=== PATIENT | female | born 1990 | race American Indian/Alaskan Native ===

== ENCOUNTER 2017-01-12 16:50 | Outpatient (CLI) | payer MEDICAID ==
[2017-01-12 18:13] VITALS: BP 112/68
[2017-01-12] MEDS ORDERED: VISTARIL PO ONE (19:49)
== END 2017-01-12 20:05 | disposition home or self-care (01) ==
LOC: TRG 16:50
PROVIDERS: ATTEND Obstetrics & Gynecology
DX: Z34.93 Encounter for supervision of normal pregnancy, unspecified, third trimester (principal); Z3A.37 37 weeks gestation of pregnancy
CPT/HCPCS: 59025; Q0177

== ENCOUNTER 2017-01-21 11:08 | Outpatient (CLI) | payer MEDICAID ==
[2017-01-21 11:44] VITALS: BP 113/60
== END 2017-01-21 14:10 | disposition home or self-care (01) ==
LOC: TRG 11:08
PROVIDERS: ATTEND Obstetrics & Gynecology
DX: O47.1 False labor at or after 37 completed weeks of gestation (principal); Z3A.38 38 weeks gestation of pregnancy
CPT/HCPCS: 59025

== ENCOUNTER 2018-05-18 18:54 | Emergency (ER) | payer SELFPAY ==
[2018-05-18 19:20] VITALS: BP 119/75
[2018-05-18 19:57] LABS: Bacteria,Urine 1+ /HPF (Negative); Bilirubin,Urine NEG (Negative); Blood,Urine SM (Negative); Color,Urine Yellow (Yellow); Mucus,Urine 2+ /HPF
[2018-05-18 20:00] LABS: HCG Qualitative,Urine Negative (Negative)
[2018-05-18] MEDS ORDERED: DIFLUCAN PO ONE (21:17)
[2018-05-18] MEDS ORDERED: MACROBID PO ONE (21:17)
--- NOTE | 2018-05-18 21:22 | Emergency Department Report ---
ED Female HPI - General Chief complaint: Urogenital-Female Stated complaint: IRRITATION PRIVATE Time Seen by Provider: 05/18/18 21:17 Source: patient Mode of arrival: Ambulatory Limitations: Language Barrier - History of Present Illness Initial comments: Visit was a show of November female who presents for dysuria frequency and urgency patient denies discharge no vaginal bleeding or back pain about final nausea vomiting no fevers or chills patient endorses not been sexually active last menstrual period one week ago however states treatment UTIs no renal stones no no flow problems no hematuria no back pain yeast infection with antibiotics MD Complaint: dysuria Onset/Timin Severity: moderate Severity scale (0 -10): 4 Quality: other (dysuria ) Consistency: intermittent Worsens with: urination Are you Now?: No Last Menstrual Period: 05/12/18 EDC: 02/16/19 Associated Symptoms: dysuria. denies: vaginal discharge, vaginal bleeding, abdominal pain, nausea/vomiting, fever/chills, headaches, loss of appetite, hematuria, rash, syncope, weakness - Related Data Sexually active: No Previous Rx's Medication Instructions Recorded Last Taken Type Nitrofurantoin Monohyd/M-Cryst 100 mg PO BID #14 capsule 05/18/18 Unknown Rx [Macrobid 100 mg Capsule] Allergies Allergy/AdvReac Type Severity Reaction Status Date / Time No Known Allergies Allergy Verified 01/12/17 17:30 ED Review of Systems ROS: Stated complaint: IRRITATION PRIVATE Other details as noted in HPI Constitutional: denies: chills, fever Eyes: denies: eye pain, eye discharge, vision change ENT: denies: ear pain, throat pain Respiratory: denies: cough, shortness of breath, wheezing Cardiovascular: denies: chest pain, palpitations Endocrine: no symptoms reported Gastrointestinal: denies: abdominal pain, nausea, diarrhea Genitourinary: urgency, dysuria, frequency. denies: hematuria, discharge, abnormal menses, dyspareunia Musculoskeletal: denies: back pain, joint swelling, arthralgia Skin: denies: rash, lesions Neurological: denies: headache, weakness, paresthesias Psychiatric: denies: anxiety, depression Hematological/Lymphatic: denies: easy bleeding, easy bruising ED Past Medical Hx - Past Medical History Previous Medical History?: No Hx Hypertension: No Hx Congestive Heart Failure: No Hx Diabetes: No Hx Deep Vein Thrombosis: No Hx Renal Disease: No Hx Sickle Cell Disease: No Hx Seizures: No Hx Asthma: No Hx COPD: No Hx HIV: No - Surgical History Past Surgical History?: No - Social History Smoking Status: Never Smoker Substance Use Type: None - Medications Home Medications: Home Medications Medication Instructions Recorded Confirmed Last Taken Type Nitrofurantoin Monohyd/M-Cryst 100 mg PO BID #14 capsule 05/18/18 Unknown Rx [Macrobid 100 mg Capsule] ED Physical Exam - General Limitations: Language Barrier General appearance: alert, in no apparent distress - Head Head exam: Present: atraumatic, normocephalic - Eye Eye exam: Present: normal appearance - ENT ENT exam: Present: mucous membranes moist - Neck Neck exam: Present: normal inspection - Respiratory Respiratory exam: Present: normal lung sounds bilaterally. Absent: respiratory distress - Cardiovascular Cardiovascular Exam: Present: regular rate, normal rhythm. Absent: systolic murmur, diastolic murmur, rubs, gallop - GI/Abdominal GI/Abdominal exam: Present: soft, normal bowel sounds. Absent: tenderness, guarding, rebound, mass, bruit, pulsatile mass - Rectal Rectal exam: Present: deferred - Extremities Exam Extremities exam: Present: normal inspection, full ROM, normal capillary refill. Absent: tenderness - Back Exam Back exam: Present: normal inspection, full ROM. Absent: tenderness, CVA tenderness (R), CVA tenderness (L), muscle spasm, paraspinal tenderness, vertebral tenderness, rash noted - Neurological Exam Neurological exam: Present: alert, oriented X3, CN II-XII intact, normal gait, reflexes normal. Absent: motor sensory deficit - Psychiatric Psychiatric exam: Present: normal affect, normal mood - Skin Skin exam: Present: warm, dry, intact, normal color. Absent: rash ED Course Vital Signs 05/18/18 05/18/18 19:11 19:24 Temperature 98.2 F Pulse Rate 84 Respiratory 18 Rate Blood Pressure 119/75 O2 Sat by Pulse 100 100 Oximetry ED Medical Decision Making - Medical Decision Making uti will treat with macrbid pt will follow up with pcp in 2-3 days, pt denies STI Critical care attestation.: If time is entered above; I have spent that time in minutes in the direct care of this critically ill patient, excluding procedure time. ED Disposition Clinical Impression: UTI (urinary tract infection) Qualifiers: Urinary tract infection type: acute cystitis Hematuria presence: without hematuria Qualified Code(s): N30.00 - Acute cystitis without hematuria Disposition: TO HOME OR SELFCARE Is pt being admited?: No Does the pt Need Aspirin: No Condition: Good Instructions: Urinary Tract Infection in Women (ED) Prescriptions: Nitrofurantoin Monohyd/M-Cryst [Macrobid 100 mg Capsule] 100 mg PO BID #14 capsule Referrals: [facility] [Outside] - 3-5 Days Forms: Work/School Release Form(ED) Time of Disposition: 21:24
== END 2018-05-18 22:07 | disposition home or self-care (01) ==
LOC: ED 18:54
DX: N39.0 Urinary tract infection, site not specified (principal)
CPT/HCPCS: 81001; 81025; 99283

== ENCOUNTER 2018-08-02 10:09 | Emergency (ER) | payer SELFPAY ==
[2018-08-02 11:22] LABS: Bilirubin,Urine NEG (Negative); Blood,Urine SM (Negative); Color,Urine Yellow (Yellow); HCG Qualitative,Urine Negative (Negative); Mucus,Urine FEW /HPF; Protein,Urine <15 mg/dL mg/dL (Negative); Urobilinogen,Urine < 2.0 mg/dL (<2.0)
--- NOTE | 2018-08-02 12:12 | Emergency Department Report ---
ED Abdominal Pain HPI - General Chief Complaint: Urogenital-Female Stated Complaint: LOWER STOMACH PAIN Time Seen by Provider: 08/02/18 12:07 Source: patient Mode of arrival: Ambulatory Limitations: No Limitations - History of Present Illness Initial Comments: Patient was seen and treated a month ago for an UTI, however she could not afford the prescription. She presents to the ED today for low abdominal pain, vaginal discharge and scant vaginal bleeding upon wiping. MD Complaint: abdominal pain, other (vaginal discharge) Onset/Timin -: week(s) Location: RLQ Radiation: none Migration to: no migration Severity: moderate Severity scale (0 -10): 6 Quality: cramping Consistency: constant Improves With: nothing Worsens With: nothing Context: other (untreated UTI) Associated Symptoms: denies other symptoms. denies: nausea, vomiting, diarrhea , fever, chills, constipation, dysuria, hematemesis, hematochezia, melena, hematuria, anorexia, syncope Treatments Prior to Arrival: other (none) - Related Data LMP (females 10-50): other (6 months ago, currently on Depo Provera injections every three months) Previous Rx's Medication Instructions Recorded Last Taken Type Nitrofurantoin Monohyd/M-Cryst 100 mg PO BID #14 capsule 05/18/18 Unknown Rx [Macrobid 100 mg Capsule] Ibuprofen [Ibu] 600 mg PO Q8H #30 tablet 08/02/18 Unknown Rx Allergies Allergy/AdvReac Type Severity Reaction Status Date / Time No Known Allergies Allergy Verified 08/02/18 10:25 ED Review of Systems ROS: Stated complaint: LOWER STOMACH PAIN Other details as noted in HPI Constitutional: denies: chills, fever Eyes: denies: eye pain, eye discharge, vision change ENT: denies: ear pain, throat pain Respiratory: denies: cough, shortness of breath, wheezing Cardiovascular: denies: chest pain, palpitations Endocrine: no symptoms reported Gastrointestinal: abdominal pain (lower). denies: nausea, vomiting, diarrhea, constipation, hematemesis, melena Genitourinary: discharge (vaginal). denies: urgency, dysuria Musculoskeletal: denies: back pain, joint swelling, arthralgia Skin: denies: rash, lesions Neurological: denies: headache, weakness, paresthesias Psychiatric: denies: anxiety, depression Hematological/Lymphatic: denies: easy bleeding, easy bruising ED Past Medical Hx - Past Medical History Previous Medical History?: No Hx Hypertension: No Hx Congestive Heart Failure: No Hx Diabetes: No Hx Deep Vein Thrombosis: No Hx Renal Disease: No Hx Sickle Cell Disease: No Hx Seizures: No Hx Asthma: No Hx COPD: No Hx HIV: No - Surgical History Past Surgical History?: No - Social History Smoking Status: Never Smoker Substance Use Type: None - Medications Home Medications: Home Medications Medication Instructions Recorded Confirmed Last Taken Type Nitrofurantoin Monohyd/M-Cryst 100 mg PO BID #14 capsule 05/18/18 Unknown Rx [Macrobid 100 mg Capsule] Ibuprofen [Ibu] 600 mg PO Q8H #30 tablet 08/02/18 Unknown Rx ED Physical Exam - General Limitations: No Limitations General appearance: alert, in no apparent distress - Head Head exam: Present: atraumatic, normocephalic - Respiratory Respiratory exam: Present: normal lung sounds bilaterally. Absent: respiratory distress, wheezes, rales, rhonchi, stridor, chest wall tenderness, accessory muscle use, decreased breath sounds, prolonged expiratory - Cardiovascular Cardiovascular Exam: Present: regular rate, normal rhythm, normal heart sounds. Absent: bradycardia, tachycardia, irregular rhythm, systolic murmur, diastolic murmur, rubs, gallop - GI/Abdominal GI/Abdominal exam: Present: soft, tenderness (RLQ), normal bowel sounds. Absent : distended, guarding, rebound, rigid, diminished bowel sounds, hyperactive bowel sounds, hypoactive bowel sounds, organomegaly, mass, bruit, pulsatile mass , hernia - Expanded GI/Abdominal Exam Expanded GI/Abdominal exam: Absent: psoas sign, obturator sign, heel tap sign, Razo's sign, Rovsing's sign, tenderness at [place], ascites - External exam: Present: normal external exam. Absent: erythema, swelling, lesions, lacerations, ecchymosis, bleeding Speculum exam: Present: vaginal discharge (creamy discharge). Absent: erythema , cervical discharge, vaginal bleeding, foreign body, tissue, laceration Bi-manual exam: Present: normal bi-manual exam. Absent: cervical motion tendernes, adnexal tenderness, adnexal mass, uterine enlargement, uterine tenderness - Extremities Exam Extremities exam: Present: normal inspection, full ROM, normal capillary refill. Absent: tenderness, pedal edema, joint swelling - Back Exam Back exam: Present: normal inspection, full ROM. Absent: tenderness, CVA tenderness (R), CVA tenderness (L), muscle spasm, paraspinal tenderness, vertebral tenderness, rash noted - Neurological Exam Neurological exam: Present: alert, oriented X3, CN II-XII intact, normal gait, reflexes normal. Absent: motor sensory deficit - Psychiatric Psychiatric exam: Present: normal affect, normal mood - Skin Skin exam: Present: warm, dry, intact, normal color. Absent: rash ED Course Vital Signs 08/02/18 10:26 Temperature 98.6 F Pulse Rate 90 Respiratory 18 Rate Blood Pressure 114/72 O2 Sat by Pulse 99 Oximetry - Reevaluation(s) Reevaluation #1: 08/02/18 12:14 U/S abd/pelvic, laboratory studies and pelvic examination ED Medical Decision Making - Lab Data Lab Results 08/02/18 Range/Units Unknown Urine Color Yellow (Yellow) Urine Turbidity Clear (Clear) Urine pH 6.0 (5.0-7.0) Ur Specific [place] 1.017 (1.003-1.030) Urine Protein <15 mg/dl (Negative) mg/dL Urine Glucose (UA) Neg (Negative) mg/dL Urine Ketones Neg (Negative) mg/dL Urine Blood Sm (Negative) Urine Nitrite Neg (Negative) Urine Bilirubin Neg (Negative) Urine Urobilinogen < 2.0 (<2.0) mg/dL Ur Leukocyte Esterase Neg (Negative) Urine WBC (Auto) 1.0 (0.0-6.0) /HPF Urine RBC (Auto) 2.0 (0.0-6.0) /HPF U Epithel Cells (Auto) 1.0 (0-13.0) /HPF Urine Mucus Few /HPF Urine HCG, Qual Negative (Negative) Microbiology 08/02/18 12:25 Vaginal Wet Prep - Final No Clue Cell, Yeast or Trichomoniasis - Radiology Data Radiology results: image reviewed TRANSVAGINAL HISTORY: lower abdominal pain TECHNIQUE: Transvesical and transvaginal pelvic sonographic imaging was performed FINDINGS: Normally anteverted uterus measures 6.5 x 3.6 x 4.2 centimeters. Homogeneous myometrium. Endometrial stripe measures 3.9 millimeters. Right ovary is not visualized. Left ovary measures 4.2 x 2.5 x 2.2 centimeters with multiple follicles and a complex cystic 1.7 centimeter lesion. Normal color flow. There are some echogenic foci identified within the lower endometrial canal. Question whether these represent calcifications. No free cul-de-sac fluid. IMPRESSION: Right ovary not visualized. Left ovary shows multiple follicles and a complex 1.7 centimeter cystic lesion, presumably a functional cyst. Normal color flow to the ovary. Echogenic foci seen in the lower uterine segment presumably represent calcifications as there is posterior shadowing. Question history of previous D C or PID. 3.9 millimeter endometrial stripe. No free pelvic fluid. - Medical Decision Making During the course of ED, U/S abd/pelvic, laboratory studies and pelvic examination were ordered. The radiology study revealed Right ovary not visualized. Left ovary shows multiple follicles and a complex 1.7 centimeter cystic lesion, presumably a functional cyst. Normal color flow to the ovary. Echogenic foci seen in the lower uterine segment presumably represent calcifications as there is posterior shadowing. Question history of previous D C or PID. 3.9 millimeter endometrial stripe. No free pelvic fluid. Laboratory studies were negative for UTI. Patient was sent home with a prescription for Ibuprofen, instructed to follow up with [employer] this week, she verbalized understanding - Differential Diagnosis UTI, Right Ovarian Cyst, Left Ovarian Cyst, STI, PID Critical care attestation.: If time is entered above; I have spent that time in minutes in the direct care of this critically ill patient, excluding procedure time. ED Disposition Clinical Impression: Pelvic pain Disposition: [id number]-01 TO HOME OR SELFCARE Is pt being admited?: No Does the pt Need Aspirin: No Condition: Stable Instructions: Chronic Pelvic Pain in Women (ED) Additional Instructions: Follow up with the selective referral given at discharge. Prescriptions: Ibuprofen [Ibu] 600 mg PO Q8H #30 tablet Referrals: PRIMARY CARE, [Primary Care Provider] - 3-[address] MD [Staff Physician] - 3-5 Days CHLOE FOWLER CNM [Advanced Practice Nurse] - 3-5 Days ANGELIKA FERRARA CNM [Advanced Practice Nurse] - 3-5 Days Forms: Work/School Release Form(ED) Time of Disposition: 14:27
--- NOTE | 2018-08-02 14:23 | Ultrasound Report ---
FINAL REPORT EXAM: US PELVIC COMPLETE HISTORY: lower abdominal pain pelvic pain, 2, para 2, LMP 6 months ago, patient is on Depo-Provera TECHNIQUE: Transvesical and endovaginal pelvic sonographic imaging was performed Comparison: None FINDINGS: Normally anteverted uterus measures 6.5 x 3.6 x 4.2 centimeters. Homogeneous myometrium. Endometrial stripe measures 3.9 millimeters. Right ovary is not visualized. Left ovary measures 4.2 x 2.5 x 2.2 centimeters with multiple follicles and a complex cystic 1.7 centimeter lesion. Normal color flow. There are some echogenic foci identified within the lower endometrial canal. Question whether these represent calcifications. No free cul-de-sac fluid. IMPRESSION: Right ovary not visualized. Left ovary shows multiple follicles and a complex 1.7 centimeter cystic lesion, presumably a functional cyst. Normal color flow to the ovary. Echogenic foci seen in the lower uterine segment presumably represent calcifications as there is posterior shadowing. Question history of previous D&C or PID. 3.9 millimeter endometrial stripe. No free pelvic fluid.
--- NOTE | 2018-08-02 14:26 | Ultrasound Report ---
FINAL REPORT EXAM: US TRANSVAGINAL HISTORY: lower abdominal pain TECHNIQUE: Transvesical and transvaginal pelvic sonographic imaging was performed FINDINGS: Normally anteverted uterus measures 6.5 x 3.6 x 4.2 centimeters. Homogeneous myometrium. Endometrial stripe measures 3.9 millimeters. Right ovary is not visualized. Left ovary measures 4.2 x 2.5 x 2.2 centimeters with multiple follicles and a complex cystic 1.7 centimeter lesion. Normal color flow. There are some echogenic foci identified within the lower endometrial canal. Question whether these represent calcifications. No free cul-de-sac fluid. IMPRESSION: Right ovary not visualized. Left ovary shows multiple follicles and a complex 1.7 centimeter cystic lesion, presumably a functional cyst. Normal color flow to the ovary. Echogenic foci seen in the lower uterine segment presumably represent calcifications as there is posterior shadowing. Question history of previous D&C or PID. 3.9 millimeter endometrial stripe. No free pelvic fluid.
[2018-08-02 14:42] VITALS: BP 122/83
== END 2018-08-02 14:42 | disposition home or self-care (01) ==
LOC: ED 10:09
DX: R10.2 Pelvic and perineal pain (principal); N89.8 Other specified noninflammatory disorders of vagina
CPT/HCPCS: 76830; 76856; 81001; 81025; 87210; 87591